=== PATIENT | male | born 1955 | race African-American/Black ===

== ENCOUNTER → 2017-03-13 | Day surgery (SDC) | payer OTHER ==
[~2017-03-13] MED LIST: ADVIL200 M3 PO; ALBUTEROL SULF8.5 G1 IH; ALBUTEROL17 GM INH; AMLODIPINE BESY10 MG PO; AMOX TR-K CLV 81 TA1 PO; ANDROGEL2.5 GM TOP; ANEXSIA 7.5/3251 TA1 PO; ANIMAL SHAPES1 EAC2 PO; ANTACID650 MG PO; APIDRA SOL100 UNIT/1 SUBQ; ASPIRIN EC81 M1 PO; ASPIRIN81 M2 PO; BUMEX2 MG PO; CARDURA2 MG PO; CARVEDILOL25 MG PO; CATAPRES0.1 MG PO; CATAPRES0.3 MG PO; COLACE PO; COREG PO; COZAAR PO; COZAAR100 MG PO; FISH OIL 1,001000 M1 PO; FLOMAX0.4 M1 PO; FUROSEMIDE40 MG PO; FUROSEMIDE80 MG PO; HUMALOG100 U/ML SQ; HUMULIN N100 U/ML; HYDRALAZINE HCL50 MG PO; ISENTRESS25 MG PO; ISENTRESS400 MG PO; LANTUS SOLOSTAR3 ML SUBQ; LANTUS100 UNITS/ SUBQ; LASIX80 MG PO; LEVAQUIN PO; LEVEMIR SQ; LEVEMIR SUBQ; LEVEMIR100 UNITS/ SUBQ; LIPITOR20 MG PO; LOPID600 MG PO; LOSARTAN POTASS50 MG PO; MICRO-K10 MEQ PO; MULTI VITAMIN1 EACH PO; MULTI-VITAMIN1 EAC1 PO; NEBCIN80 MG/2 ML IV; NIACIN400 MG PO; NIACIN500 M2 PO; NORVASC10 MG PO; NORVIR100 M1 PO; NORVIR100 MG PO; NOVOLOG100 U/M1 SUBQ; NOVOLOG100 U/ML; NOVOLOG100 U/ML SUBQ; NOVOLOG100 UNITS/ SUBQ; OCUFLOX5 ML; OMEPRAZOLE40 M1 PO; PANTOPRAZOLE SO40 MG PO; PHOSLO667 MG; PHOSLO667 MG PO; PNV PRENATAL P1 EACH PO; POTASSIUM CHLO10 ME1 PO; POTASSIUM CHLO10 MEQ DOB; PRAVASTATIN SOD40 MG PO; PREDNISONE10 MG PO; PRENATAL VITAMI1 TA4 PO; PREZISTA600 MG PO; PRINIVIL40 MG PO; SODIUM BICARBO650 MG PO; SUSTIVA PO; TRESIBA FL100 UNIT/1; TRUVADA TABLET1 TA1 PO; VANCOMYCIN HCL1 GM IV; VITAMIN D250000 UNIT PO; VITAMIN D50000 UNIT PO; ZYVOX100 MG/5 M PO; [UNRECOGNIZED DRUG - OTHER] PO
--- NOTE | ~2017-03-13 | OR ---
Unit #: [id number] #: [id number] Patient: ABHISHEK CASTANEDA [id number] [address] [address] [id number] O MR#: [id number] NAME: ABHISHEK CASTANEDA ROOM: Date of Procedure: 03/13/2017 Admission Date: 03/13/2017 Surgeon: Fabian Arriola M.D. : 1955 Attending Physician: Fabian Arriola M.D. Primary Care Physician: Eli Boston M.D. OPERATIVE REPORT PROCEDURE PERFORMED Colonoscopy to cecum. INDICATIONS FOR PROCEDURE Average risk for colorectal cancer. MEDICATIONS Monitored anesthesia. POSTOPERATIVE FINDINGS 1. Colonoscopy completed to cecum. Prep was good. 2. No polyps, masses, or colitis was seen. 3. Prep was good. PLAN Repeat colonoscopy in 10 years. DESCRIPTION OF PROCEDURE The patient was explained of the procedure, risks, and benefits along with the risks and benefits of anesthesia. He was brought to the endoscopy room. Propofol anesthesia was given. Rectal exam was done, which was normal. Colonoscope was lubricated, passed up the rectum, advanced under direct vision all the way to the cecum. Cecum was identified by ileocecal valve and appendiceal orifice. I then started to pull the scope out carefully looking. No polyps, masses, or colitis was seen. Mucosa was normal and healthy. I retroflexed in the rectum, small hemorrhoids were seen. The scope was gently pulled out. He tolerated it well. Dictated by... Karuna Barry/jake TD: 03/13/2017 19:56 JOB #: [id number] CC: Jersey Gardiner A.P.R.N. Unit #: [id number] #: [id number] Patient: ABHISHEK CASTANEDA OPERATIVE REPORT Page 1 of 1 X Fabian Arriola MD PROCEDURE OPERATIVE NOTE
== END | disposition home or self-care (01) ==
LOC: COPS 08:31
PROVIDERS: Internal Medicine
PROC: 0DJD8ZZ Inspection of Lower Intestinal Tract, Via Natural or Artificial Opening Endoscopic (ICD-10-PCS; principal; 2017-03-13 10:00)
DX: Z12.11 Encounter for screening for malignant neoplasm of colon (principal); K64.9 Unspecified hemorrhoids; E11.22 Type 2 diabetes mellitus with diabetic chronic kidney disease; I12.0 Hypertensive chronic kidney disease with stage 5 chronic kidney disease or end stage renal disease; N18.6 End stage renal disease; Z79.4 Long term (current) use of insulin; Z99.2 Dependence on renal dialysis; Z79.899 Other long term (current) drug therapy; B20 Human immunodeficiency virus [HIV] disease
CPT/HCPCS: 82947

== ENCOUNTER 2017-03-16 20:39 | Emergency (ER) | payer OTHER ==
[~2017-03-16] VITALS: Ht 167.6 cm; Wt 78.2 kg
--- NOTE | ~2017-03-16 | CT101 ---
[facility] A Service of [facility] RADIOLOGY TEXT RESULTS PATIENT: ABHISHEK CASTANEDA LOCATION: [facility] : 57 UNIT #: [id number] AGE: [address]: Lopez Owens MD SEX: M ORDER DR: [id number] [facility]. [place], [place] [address] [id number] E MR#: [id number] Acc #: [id number] NAME: ABHISHEK CASTANEDA : 1955 SEX: M STUDY DATE/TIME: 03/16/2017 22:57 UNIT: SONIA ROOM: STUDY DESCRIPTION: CT Maxillofacial Area Wo Cont Attending Physician: Lopez Owens M.D. Ordering Physician: Lopez Owens M.D. Primary Care Physician: Eli Boston M.D. MEDICAL IMAGING REPORT This report is preliminary unless electronic signature is present EXAM CT facial bones without contrast. INDICATIONS Left sided mandibular and ear pain with headache for the past 1-1/[address] of the maxillofacial region. This CT exam was performed with one or more of the following radiation dose reduction techniques: automatic exposure control, adjustment of mA and/or kV according to patient size, and iterative reconstruction. COMPARISON None. FINDINGS No fracture or aggressive-appearing bone change. There is a left mastoid air cell and effusion. There is opacification in the left external auditory canal and middle ear cavity. No drainable fluid collection. IMPRESSION 1. Left mastoid air cell effusion with opacification in the left external auditory canal and middle ear cavity. Correlate for otomastoiditis. No aggressive appearing bone change or acute fracture. 2. No drainable fluid collection. Dictated by... Michael Brandt M.D. THIS IS AN ELECTRONICALLY VERIFIED REPORT [facility] A Service of [facility] RADIOLOGY TEXT RESULTS PATIENT: ABHISHEK CASTANEDA LOCATION: [facility] : 57 UNIT #: [id number] AGE: [address]: Lopez Owens MD SEX: M ORDER DR: Michael Brandt M.D. at 03/17/2017 10:03 PM GURDEEP/berry TD: 03/17/2017 18:49 JOB #: [id number] MEDICAL IMAGING REPORT Page 1 of 1 COPY
[2017-03-16 23:54] LABS: BASOPHIL# 0.1 X10e3 (0-0.3); BASOPHIL% 0.8 % (0-2.5); EOSINOPHIL# 0.1 X10e3 (0-0.7); EOSINOPHIL% 1.2 % (0.0-7.0); HEMATOCRIT 31.5 % (38.0-50.0); HEMOGLOBIN 10.6 gm/dL (13.0-16.0); LYMPHOCYTE# 1.4 X10e3 (1.0-3.5); LYMPHOCYTE% 18.8 % (17.0-45.0); MEAN CELL VOLUME 83.8 FL (83-96); MEAN CORPUSCULAR HEMOGLOBIN 28.3 PG (28-34); MEAN CORPUSCULAR HGB CONC 33.7 g/dL (30-36); MEAN PLATELET VOLUME 7.4 FL (6.5-11.5); MONOCYTE# 0.8 X10e3 (0-1.0); MONOCYTE% 10.4 % (3.0-12.0); NEUTROPHIL% 68.8 % (40-75); PLATELET COUNT 235 X10e3 (140-420); RED BLOOD COUNT 3.76 X10e (3.90-5.60); RED CELL DISTRIBUTION WIDTH 14.9 % (11.0-15.5); WHITE BLOOD COUNT 7.3 X10e3 (4.0-10.5)
[2017-03-16 23:55] LABS: DIFF IND NO
[2017-03-17 00:09] LABS: BUN/CREATININE RATIO 5.55; CALCIUM SERUM 8.3 mg/dL (8.4-10.2); CREATININE SERUM 3.6 mg/dL (0.6-1.4); GLOM FILT RATE Estimated 20.1 mL/min (>60); POTASSIUM 4.1 mmol/L (3.5-5.1)
== END 2017-03-17 02:51 | disposition hospice, home (50) ==
LOC: CED 20:39
PROVIDERS: Emergency Medicine
DX: H70.92 Unspecified mastoiditis, left ear (principal); E11.65 Type 2 diabetes mellitus with hyperglycemia; E11.22 Type 2 diabetes mellitus with diabetic chronic kidney disease; N18.6 End stage renal disease; Z79.899 Other long term (current) drug therapy; Z79.4 Long term (current) use of insulin
CPT/HCPCS: 70486; 80048; 85025; 87070; 87077; 87186; 87205; 99284